=== PATIENT | female | born 2000 | race African-American/Black ===

== ENCOUNTER 2024-12-27 16:50 | Emergency (ER) | payer BC, MEDICAID, SELFPAY ==
[2024-12-27 17:01] VITALS: BP 125/81; PULSE 83; RESP 16; TEMP 37.2; O2SAT 96
--- NOTE | 2024-12-27 17:11 | XR_ITS ---
Examination: Complete OB ultrasound, less than 14 weeks, transabdominal Date and time of exam: December 27, 2024, 1722 hours INDICATIONS: Vaginal bleeding today with positive home test yesterday Technique: Obstetrical ultrasound images less than 14 weeks performed via transabdominal imaging Findings: Uterus 9.4 cm, no uterine mass or intrauterine gestation Endometrial stripe 1.3 cm Right ovary 4.4 cm arterial flow Left ovary 2.3 cm arterial flow IMPRESSION: No uterine mass or intrauterine gestation
--- NOTE | 2024-12-27 17:12 | EDNOTE_ITS ---
ED OB Contraction Preg RMI/HPI General Chief complaint: Vaginal Bleeding Stated complaint: Vaginal bleeding X 2 days, 6 weeks OB Time Seen by Provider: 12/27/24 17:10 Arrival date/time: 12/27/24 16:50 24-year-old female G3, P2 unknown gestational week reports with complaints of sudden onset of vaginal bleeding. Patient states that she had normal menses 1 month ago but missed the menses for this month she started to bleed but she had abnormal pain. Patient states she was evaluated by her PCP who said her test was positive but sent her to the emergency department for evaluation of the vaginal bleeding Limitations: no limitations Related Data Home Medications ?Medication ?Instructions ?Recorded ?Confirmed vits [id number] fum 1 tab PO QDAY 3 04/23/23 27 mg iron-folic acid 800 mcg tablet ( Vitamin) Previous Rx's ?Medication ?Instructions ?Recorded docusate sodium 100 mg capsule 100 mg PO BID #60 caps 04/23/23 (Colace) ibuprofen 800 mg tablet 800 mg PO Q6H PRN pain #90 t abs 04/23/23 lanolin 50 % topical ointment 1 applic topical TID PRN skin 04/23/23 irritation #15 tubes Allergies Allergy/AdvReac Type Severity Reaction Status Date / Time No Known Allergies Allergy Verified 12/27/24 16:55 Review of Systems Constitutional Constitutional: Denies chills and Denies fever(s) Cardiovascular Cardiovascular: Denies chest pain at rest and Denies dyspnea Respiratory Respiratory: Denies cough and Denies dyspnea Gastrointestinal Gastrointestinal: Denies nausea and Denies vomiting Genitourinary Genitourinary: Reports abnormal menses and Reports pelvic pain Musculoskeletal Musculoskeletal: Denies back pain and Denies myalgias Past Medical History Past Medical History NEUROLOGIC: Positive Neurological Disorders and Epilepsy ( A BABY) CARDIAC: Negative Cardiac Disorders or Congestive Heart Failure RESPIRATORY: Negative Chronic Obstructive Pulmonary Disease (COPD) GASTROINTESTINAL: Negative Gastrointestinal Disorders, Hepatitis or Colorectal Cancer GENITOURINARY: Negative Genitourinary Disorders, Renal Disease or Prostate Cancer REPRODUCTIVE: Positive Previous Pregnancies (X1); Negative Breast Cancer, Endometriosis, Genital Herpes, Gonorrhea, Pelvic Inflammatory Disease, Syphilis, Testicular Cancer or Uterine Prolapse MUSCULOSKELETAL: Negative Musculoskeletal Disorders or Bone Cancer ENDOCRINE: Negative Endocrine Disorders, Diabetes Mellitus Type 1 or Diabetes Mellitus Type 2 HEMATOLOGIC: Positive Blood Disorders, Anemia and Thalassemia (ALPHA- THALASSEMIA) OTHER HISTORY: Positive Hospitalization (CHILDBIRTH); Negative Autoimmune Disease, Down Syndrome, Developmental Delay, Shingles, Falls, Blood Transfusions, Blood Transfusion Reaction, Anesthesia Reactions, Organ Transplant, Chemotherapy, Radiation Therapy, Hyperbaric Therapy, MRSA, VRSA, Vancomycin-Resistant Enterococci, Human Immunodeficiency Virus (HIV), Chicken Pox, Measles, Mumps, Rubella (Armenian Measles), Pertussis, Clostridium Difficile, Cancer, Breast Cancer, Cervical Cancer, Colorectal Cancer, Lung Cancer, Ovarian Cancer, Prostate Cancer or Testicular Cancer Family History FAMILY HISTORY: Negative Family Psychiatric Problems, Family Respiratory Disorders, Family Cardiac Disorders, Family Gastrointestinal Problems, Family Cancer, Family Surgery or Family Anesthesia Reaction Surgical History SURGICAL: Negative Section or Organ Transplant Social History SMOKING STATUS: Never smoker SUBSTANCE USE: does not use ED Exam General Limitations: Present no limitations General appearance: Present alert and in no apparent distress Chest Chest inspection: Present normal inspection and symmetric chest wall rise Respiratory Respiratory exam: Present normal lung sounds bilaterally Cardiovascular Cardiovascular exam: Present regular rate, normal rhythm and normal heart sounds Abdominal Exam Abdominal exam: Present soft and normal bowel sounds Extremities Exam Extremities exam: Present normal inspection and full ROM Back Exam Back exam: Present normal inspection and full ROM Neurological Exam Neurological exam: Present alert, oriented X3 and CN II-XII intact Psychiatric Psychiatric exam: Present normal affect and normal mood Skin Skin exam: Present warm, dry, intact and normal color Course Course Course Narrative: A 24-year-old female, , unknown gestation, presents with vaginal bleeding. Her beta-hCG level is 575, but the ultrasound shows no visible gestational sac. The differential diagnosis includes early , threatened , or complete . The patient is stable, non-toxic in appearance, and has stable vital signs. She will be discharged home and advised to follow up with her primary care provider or [employer] [facility] in 48 hours for a repeat beta-hCG test. Quality Measures none Orders Category Date Time Status US OB <= 14 weeks fetus Stat Exams 12/27/24 17:11 Completed Beta HCG,Quantitative Stat Lab 12/27/24 17:17 Completed Chlamydia/GC/TV - PCR Stat Lab 12/27/24 17:17 Ordered UA, C/S IF [Urinalysis, C/S if Indicated] Stat Lab 12/27/24 18:26 Received Vital Signs Vital signs: Vital Signs Temperature 99.0 F 12/27/24 17:01 Pulse Rate 83 12/27/24 17:01 Respiratory Rate 16 12/27/24 17:01 Blood Pressure 125/81 12/27/24 17:01 Pulse Oximetry (%) 96 12/27/24 17:01 Oxygen Delivery Method Room Air 12/27/24 17:01 Vaginal Bleeding Patient data External records reviewed:: None Clinical information provided by:: patient Social determinants that could affect healthcare access:: none Patient has the following chronic illnesses:: none How is presenting disease/condition affected by chronic disease/condition?: no chronic disease Evaluation data The following diagnostics were reviewed and interpreted by me:: lab results and radiology exam(s) Lab and/or radiology exams considered but not ordered:: none Interpretation Summary: No evidence of gestational on the ultrasound and beta-hCG is 575 Medications / Prescriptions Medications or Prescriptions considered but not ordered:: None Medication administrations:: None Consultations Consultation(s) initiated? (list below): No Diagnosis Vaginal Bleeding Differential Diagnosis: missed , threatened and incomplete Most likely diagnosis given after review of the tests above:: Threatened Admission Indicated Admission indicated?: not indicated Admission Request Was there a request for admission?: No Disposition Plan Disposition Plan: Discharge Discharge Attestation Discharge Attestation: The patient and all family members were given an opportunity to ask questions and understood the discharge instructions. Discharge instructions specifically effects, indications for sooner follow up or return to the emergency department, and the expected course of current diagnosis. Patient condition: Stable Discharge Plan Plan Patient Disposition: HOME (Self Care) Prescriptions/Referrals Prescriptions/Med Rec: No Action docusate sodium [Colace] 100 mg capsule 100 mg PO BID Qty: 60 0RF ibuprofen 800 mg tablet 800 mg PO Q6H MDD 4 PRN (Reason: pain) Qty: 90 0RF lanolin 50 % ointment 1 applic topical TID PRN (Reason: skin irritation) Qty: 15 0RF Vitamin 27 mg iron- 800 mcg Tablet 1 tab PO QDAY Referrals: No Primary/Family,Physician [Primary Care Provider] - In 1 week Problem List Clinical Impression: , threatened Patient/Caregiver Discharge Instructions Discharge Activity: activity as tolerated Education Materials: ED Possible Miscarriage ... Additional Instructions: Follow-up with your OB or PCP in 48 hours for repeat beta-hCG test. If symptoms worsen return to the emergency department. Print Language: Korean Stand Alone Forms: Stephanie Award Info., Patient Portal Info Letter
[2024-12-27 17:52] LABS: Beta HCG,Quantitative 575 mIU/mL (<5.0)
[2024-12-27 18:53] LABS: Collection Type, Urine Clean Catch; RBC,Urine 0 /hpf (0-3)
[2024-12-27 19:30] LABS: Amorphous Crystals,Urine Present (Absent); Bilirubin,Urine Negative (Negative); Blood,Urine Negative (Negative); Clarity,Urine Clear (Clear/Hazy); Color,Urine Lt-Yellow (Lt Yel-Yel); Culture Indicated,Urine Not Indicated; Glucose, Urine Negative (Negative); Ketones,Urine Negative (Negative); Leukocyte Esterase,Urine Positive (Negative); Nitrite,Urine Negative (Negative); PH,Urine 7.0 (5.0-7.0); Protein,Urine Trace (Neg - Trace); Specific Gravity,Urine 1.028 (1.001-1.035); Squamous Epithelial Cell,Urine 1 /hpf (0-5); Urobilinogen,Urine Negative mg/dL (0.0-1.0); WBC,Urine 2 /hpf (0-5)
[2024-12-28 10:22] LABS: Chlamydia trachomatis PCR Negative (Not Detect); Neisseria Gonorrhoeae DNA PCR Negative (Not Detect); Trichomonas Negative (Negative)
== END 2024-12-27 19:09 | disposition home or self-care (01) ==
PROVIDERS: Physician Assistant; Emergency Provider Emergency Medicine
DX: O03.9 Complete or unspecified spontaneous abortion without complication (principal)
CPT/HCPCS: 36415; 76801; 81001; 84702; 87491; 87591; 87661; 99283